=== PATIENT | male | born 1970 | race African-American/Black ===

== ENCOUNTER 2020-06-19 10:10 | Inpatient (IN) | payer OTHER ==
[2020-06-19 10:49] VITALS: BMI 22.6
[2020-06-19] MEDS ORDERED: diazePAM 5 MG TABLET PO PRN (12:46)
[2020-06-19] MEDS ORDERED: IBUPROFEN 400 MG TABLET (FP) PO PRN (12:46)
[2020-06-19] MEDS ORDERED: MAGNESIUM CITRATE 300 ML BOTTLE PO PRN (12:46)
[2020-06-19] MEDS ORDERED: MENTHOL/PHENOL 1 EACH UD MM PRN (12:46)
[2020-06-19] MEDS ORDERED: METHOCARBAMOL 500 MG TABLET PO PRN (12:46)
[2020-06-19] MEDS ORDERED: BISMUTH SUBSALICYLATE 524 MG/30 ML UD PO PRN (12:46)
[2020-06-19] MEDS ORDERED: MAG HYDROX/AL HYDROX/SIMETH 30 ML UNIT-DOSE CUP PO PRN (12:46)
[2020-06-19] MEDS ORDERED: ACETAMINOPHEN 325 MG TABLET (FP) PO PRN ×2 (12:46)
[2020-06-19] MEDS ORDERED: ONDANSETRON *ODT* 4 MG TABLET SL PRN (12:46)
[2020-06-19] MEDS ORDERED: MAGNESIUM HYDROX 2400MG/30ML ORAL SUSPENSION 30 ML CUP PO PRN (12:46)
[2020-06-19] MEDS ORDERED: NICOTINE POLACRILEX 2 MG GUM BUC PRN (12:46)
[2020-06-19] MEDS ORDERED: ALBUTEROL SO4 HFA INHALER IH PRN (12:48)
[2020-06-19] MEDS: diazePAM 5 MG TABLET PO SCH ×3 (17:11→23:06)
[2020-06-19] MEDS: hydrOXYzine PAMOATE 25 MG CAPSULE (FP) PO SCH ×3 (17:11→23:05)
[2020-06-19 17:17] LABS: CALCIUM 9.2 mg/dL (8.5-10.1)
[2020-06-19 17:18] LABS: ALBUMIN 3.7 g/dl (3.4-5.0); BLOOD UREA NITROGEN 14.5 mg/dL (7-18)
[2020-06-19 17:23] LABS: BILIRUBIN,TOTAL 0.4 mg/dL (0.2-1); TOT PROT 7.2 g/dl (6.4-8.2)
[2020-06-19 17:28] LABS: HEMATOCRIT 36.8 % (35.4-49); HEMOGLOBIN 12.4 GM/dL (11.7-16.9); MCH 30.2 pg (25.7-33.7); MCHC 33.8 g/dl (32.0-35.9); MEAN CELL VOLUME 89.4 fl (80-96); MEAN PLT VOLUME 7.4 fl (7.5-11.1); PLATELET COUNT 372 K/MM3 (134-434); RBC 4.12 M/mm3 (4.00-5.60); RDW 15.9 % (11.9-15.9); WHITE BLOOD COUNT 5.1 K/mm3 (4.0-10.0)
[2020-06-19] MEDS: PRENATAL VITAMINS W/ FOLIC ACID TABLET (FP) PO SCH (18:26)
[2020-06-19] MEDS: MELATONIN 5 MG TABLETS PO SCH (23:05)
[2020-06-19] MEDS: THIAMINE HCL 100 MG TABLET (FP) PO SCH (23:06)
[2020-06-20] MEDS: hydrOXYzine PAMOATE 25 MG CAPSULE (FP) PO SCH ×5 (06:23→22:31)
[2020-06-20] MEDS: diazePAM 5 MG TABLET PO SCH ×4 (06:23→22:31)
[2020-06-20] MEDS: PRENATAL VITAMINS W/ FOLIC ACID TABLET (FP) PO SCH (11:02)
[2020-06-20] MEDS: NICOTINE 21 MG/24 HOURS TOPICAL PATCH TD SCH (11:02)
[2020-06-20] MEDS: MELATONIN 5 MG TABLETS PO SCH (22:31)
[2020-06-20] MEDS: THIAMINE HCL 100 MG TABLET (FP) PO SCH (22:31)
[2020-06-21] MEDS: hydrOXYzine PAMOATE 25 MG CAPSULE (FP) PO SCH ×5 (06:50→22:04)
[2020-06-21] MEDS: diazePAM 5 MG TABLET PO SCH ×3 (06:50→22:04)
[2020-06-21] MEDS: PRENATAL VITAMINS W/ FOLIC ACID TABLET (FP) PO SCH (10:11)
[2020-06-21] MEDS: NICOTINE 21 MG/24 HOURS TOPICAL PATCH TD SCH (10:12)
[2020-06-21] MEDS: MELATONIN 5 MG TABLETS PO SCH (22:04)
[2020-06-21] MEDS: THIAMINE HCL 100 MG TABLET (FP) PO SCH (22:04)
[2020-06-22] MEDS ORDERED: diazePAM 5 MG TABLET PO SCH (06:00)
[2020-06-22] MEDS: hydrOXYzine PAMOATE 25 MG CAPSULE (FP) PO SCH (06:11)
[2020-06-22 11:12] VITALS: BP 126/78; PULSE 89; TEMP 98.4
[2020-06-23] MEDS ORDERED: diazePAM 5 MG TABLET PO ONE (06:00)
[2020-06-23 06:06] LABS: SARS-CoV-2 NAA Not Detected (Not Detected)
== END 2020-06-22 12:00 | disposition home or self-care (01) | DRG 774 ==
LOC: YASAS 10:10 → Y6N 15:49
PROVIDERS: ADMIT Allergy & Immunology; ATTEND Allergy & Immunology
PROC: HZ2ZZZZ Detoxification Services for Substance Abuse Treatment (ICD-10-PCS; principal; 2020-06-19)
DX: F10.230 Alcohol dependence with withdrawal, uncomplicated (principal); F14.20 Cocaine dependence, uncomplicated; F17.210 Nicotine dependence, cigarettes, uncomplicated; F19.24 Other psychoactive substance dependence with psychoactive substance-induced mood disorder; J45.20 Mild intermittent asthma, uncomplicated; Z87.828 Personal history of other (healed) physical injury and trauma; Z59.0 Homelessness; Z91.013 Allergy to seafood
CPT/HCPCS: 36415; 80053; 82962; 85027; 86780; C9803; Q0162; U0003; U0005

== ENCOUNTER 2020-09-20 10:24 | Inpatient (IN) | payer OTHER ==
[2020-09-20 14:03] VITALS: BMI 20.9
[2020-09-20] MEDS ORDERED: ONDANSETRON *ODT* 4 MG TABLET SL PRN (14:20)
[2020-09-20] MEDS ORDERED: NICOTINE 10 MG CARTRIDGE (INHALER) IH PRN (14:20)
[2020-09-20] MEDS ORDERED: MAG HYDROX/AL HYDROX/SIMETH 30 ML UNIT-DOSE CUP PO PRN (14:20)
[2020-09-20] MEDS ORDERED: diazePAM 5 MG TABLET PO PRN (14:20)
[2020-09-20] MEDS ORDERED: ACETAMINOPHEN 325 MG TABLET (FP) PO PRN ×2 (14:20)
[2020-09-20] MEDS ORDERED: METHOCARBAMOL 500 MG TABLET PO PRN (14:20)
[2020-09-20] MEDS ORDERED: MAGNESIUM CITRATE 300 ML BOTTLE PO PRN (14:20)
[2020-09-20] MEDS ORDERED: NICOTINE POLACRILEX 2 MG GUM BUC PRN (14:20)
[2020-09-20] MEDS ORDERED: IBUPROFEN 400 MG TABLET (FP) PO PRN (14:20)
[2020-09-20] MEDS ORDERED: MAGNESIUM HYDROX 2400MG/30ML ORAL SUSPENSION 30 ML CUP PO PRN (14:20)
[2020-09-20] MEDS ORDERED: BISMUTH SUBSALICYLATE 524 MG/30 ML PO PRN (14:20)
[2020-09-20] MEDS ORDERED: MENTHOL/PHENOL 1 EACH UD MM PRN (14:20)
[2020-09-20] MEDS ORDERED: ALBUTEROL SO4 HFA INHALER IH PRN (14:22)
[2020-09-20] MEDS ORDERED: diazePAM 5 MG TABLET ONE (18:32)
[2020-09-20] MEDS: diazePAM 5 MG TABLET PO SCH ×2 (18:34→22:53)
[2020-09-20] MEDS: hydrOXYzine PAMOATE 25 MG CAPSULE (FP) PO SCH ×2 (18:34→22:52)
[2020-09-20] MEDS: MELATONIN 5 MG TABLETS PO SCH (22:52)
[2020-09-20] MEDS: THIAMINE HCL 100 MG TABLET (FP) PO SCH (22:52)
[2020-09-21] MEDS: diazePAM 5 MG TABLET PO SCH ×4 (06:08→22:41)
[2020-09-21] MEDS: hydrOXYzine PAMOATE 25 MG CAPSULE (FP) PO SCH ×3 (06:08→13:47)
[2020-09-21 10:20] LABS: HEMATOCRIT 40.6 % (35.4-49); HEMOGLOBIN 13.5 GM/dL (11.7-16.9); MCH 30.9 pg (25.7-33.7); MCHC 33.2 g/dl (32.0-35.9); MEAN CELL VOLUME 92.9 fl (80-96); MEAN PLT VOLUME 7.4 fl (7.5-11.1); PLATELET COUNT 343 10^3/uL (134-434); RBC 4.38 M/mm3 (4.00-5.60); RDW 15.4 % (11.9-15.9)
[2020-09-21] MEDS: PRENATAL VITAMINS W/ FOLIC ACID TABLET (FP) PO SCH (10:27)
[2020-09-21 10:30] LABS: ALBUMIN 3.4 g/dl (3.4-5.0)
[2020-09-21 10:31] LABS: BLOOD UREA NITROGEN 18.1 mg/dL (7-18)
[2020-09-21 10:34] LABS: BILIRUBIN,TOTAL 0.3 mg/dL (0.2-1); CREATININE 1.1 mg/dL (0.55-1.3); TOT PROT 6.6 g/dl (6.4-8.2)
[2020-09-21 11:24] LABS: HIV INTERPRETATION NEGATIVE (NEGATIVE)
[2020-09-21] MEDS ORDERED: hydrOXYzine PAMOATE 25 MG CAPSULE (FP) PO PRN (14:16)
[2020-09-21] MEDS: THIAMINE HCL 100 MG TABLET (FP) PO SCH (22:41)
[2020-09-21] MEDS: MELATONIN 5 MG TABLETS PO SCH (22:41)
[2020-09-22] MEDS ORDERED: INSULIN SLIDING SCALE (NOVOLOG) 1 VIAL SQ ONE (04:06)
[2020-09-22] MEDS: diazePAM 5 MG TABLET PO SCH ×3 (06:33→22:23)
[2020-09-22] MEDS: PRENATAL VITAMINS W/ FOLIC ACID TABLET (FP) PO SCH (10:59)
[2020-09-22] MEDS: MELATONIN 5 MG TABLETS PO SCH (22:23)
[2020-09-22] MEDS: THIAMINE HCL 100 MG TABLET (FP) PO SCH (22:23)
[2020-09-23] MEDS: diazePAM 5 MG TABLET PO SCH ×2 (05:41→17:50)
[2020-09-23] MEDS: PRENATAL VITAMINS W/ FOLIC ACID TABLET (FP) PO SCH (10:30)
[2020-09-23] MEDS: MELATONIN 5 MG TABLETS PO SCH (22:31)
[2020-09-23] MEDS: THIAMINE HCL 100 MG TABLET (FP) PO SCH (22:31)
[2020-09-24] MEDS ORDERED: diazePAM 5 MG TABLET PO ONE (06:00)
[2020-09-24] MEDS: PRENATAL VITAMINS W/ FOLIC ACID TABLET (FP) PO SCH (10:19)
[2020-09-24 17:44] VITALS: BP 133/84; PULSE 81; TEMP 97.5
== END 2020-09-24 19:11 | disposition other institution (70) | DRG 774 ==
LOC: YASAS 10:24 → UNDOADMIN 19:51 → Y3N 19:51
PROVIDERS: ADMIT Allergy & Immunology; ATTEND Allergy & Immunology
PROC: HZ2ZZZZ Detoxification Services for Substance Abuse Treatment (ICD-10-PCS; principal; 2020-09-20)
DX: F10.230 Alcohol dependence with withdrawal, uncomplicated (principal); F14.20 Cocaine dependence, uncomplicated; F17.210 Nicotine dependence, cigarettes, uncomplicated; J45.909 Unspecified asthma, uncomplicated; M54.5 Low back pain; G89.29 Other chronic pain
CPT/HCPCS: 36415; 80053; 85027; 86780; 87389; C9803; U0003; U0005

== ENCOUNTER 2020-09-24 18:12 | Inpatient (IN) | payer OTHER ==
[2020-09-24] MEDS ORDERED: MAGNESIUM HYDROX 2400MG/30ML ORAL SUSPENSION 30 ML CUP PO PRN (18:24)
[2020-09-24] MEDS ORDERED: MAGNESIUM CITRATE 300 ML BOTTLE PO PRN (18:24)
[2020-09-24] MEDS ORDERED: ACETAMINOPHEN 325 MG TABLET (FP) PO PRN (18:24)
[2020-09-24] MEDS ORDERED: guaiFENesin 200 MG/10 ML 10 ML UNIT-DOSE CUPS PO PRN (18:24)
[2020-09-24] MEDS ORDERED: MAG HYDROX/AL HYDROX/SIMETH 30 ML UNIT-DOSE CUP PO PRN (18:24)
[2020-09-24] MEDS ORDERED: P-EPHED 60MG/TRIPROLIDI 2.5MG TABLET PO PRN (18:24)
[2020-09-24] MEDS ORDERED: LOPERAMIDE HCL 2 MG CAPSULE PO PRN (18:24)
[2020-09-24] MEDS ORDERED: MENTHOL/PHENOL 1 EACH UD MM PRN (18:24)
[2020-09-24] MEDS ORDERED: ALBUTEROL SO4 HFA INHALER IH PRN (18:26)
[2020-09-24] MEDS: THIAMINE HCL 100 MG TABLET (FP) PO SCH (21:52)
[2020-09-24] MEDS: MELATONIN 5 MG TABLETS PO SCH (21:52)
[2020-09-25] MEDS: PRENATAL VITAMINS W/ FOLIC ACID TABLET (FP) PO SCH (09:42)
[2020-09-25] MEDS: NICOTINE 7 MG/24 HOURS TOPICAL PATCH TD SCH (09:42)
[2020-09-25] MEDS: NICOTINE 10 MG CARTRIDGE (INHALER) IH PRN (09:42)
[2020-09-25] MEDS: hydrOXYzine PAMOATE 25 MG CAPSULE (FP) PO PRN (21:20)
[2020-09-25] MEDS: MELATONIN 5 MG TABLETS PO SCH (21:20)
[2020-09-25] MEDS: THIAMINE HCL 100 MG TABLET (FP) PO SCH (21:20)
[2020-09-26] MEDS: NICOTINE 10 MG CARTRIDGE (INHALER) IH PRN (07:55)
[2020-09-26] MEDS: PRENATAL VITAMINS W/ FOLIC ACID TABLET (FP) PO SCH (10:00)
[2020-09-26] MEDS: NICOTINE 7 MG/24 HOURS TOPICAL PATCH TD SCH (10:00)
[2020-09-26] MEDS: IBUPROFEN 400 MG TABLET (FP) PO PRN (10:01)
[2020-09-26] MEDS: MELATONIN 5 MG TABLETS PO SCH (21:16)
[2020-09-26] MEDS: THIAMINE HCL 100 MG TABLET (FP) PO SCH (21:17)
[2020-09-27] MEDS: PRENATAL VITAMINS W/ FOLIC ACID TABLET (FP) PO SCH (09:38)
[2020-09-27] MEDS: NICOTINE 10 MG CARTRIDGE (INHALER) IH PRN (09:39)
[2020-09-27] MEDS: NICOTINE 7 MG/24 HOURS TOPICAL PATCH TD SCH (09:39)
[2020-09-27] MEDS: IBUPROFEN 400 MG TABLET (FP) PO PRN (11:30)
[2020-09-27] MEDS: THIAMINE HCL 100 MG TABLET (FP) PO SCH (21:17)
[2020-09-27] MEDS: MELATONIN 5 MG TABLETS PO SCH (21:17)
[2020-09-28] MEDS: NICOTINE 10 MG CARTRIDGE (INHALER) IH PRN (09:52)
[2020-09-28] MEDS: NICOTINE 7 MG/24 HOURS TOPICAL PATCH TD SCH (09:52)
[2020-09-28] MEDS: PRENATAL VITAMINS W/ FOLIC ACID TABLET (FP) PO SCH (09:52)
[2020-09-28] MEDS: IBUPROFEN 400 MG TABLET (FP) PO PRN (15:54)
[2020-09-28] MEDS: hydrOXYzine PAMOATE 25 MG CAPSULE (FP) PO PRN (15:54)
[2020-09-28] MEDS: THIAMINE HCL 100 MG TABLET (FP) PO SCH (23:10)
[2020-09-28] MEDS: MELATONIN 5 MG TABLETS PO SCH (23:10)
[2020-09-29] MEDS: IBUPROFEN 400 MG TABLET (FP) PO PRN ×2 (06:28→21:35)
[2020-09-29] MEDS: NICOTINE 10 MG CARTRIDGE (INHALER) IH PRN (09:55)
[2020-09-29] MEDS: PRENATAL VITAMINS W/ FOLIC ACID TABLET (FP) PO SCH (09:55)
[2020-09-29] MEDS: NICOTINE 7 MG/24 HOURS TOPICAL PATCH TD SCH (09:55)
[2020-09-29] MEDS: METHOCARBAMOL 500 MG TABLET PO PRN ×2 (11:58→21:35)
[2020-09-29] MEDS: LIDOCAINE 5% TOPICAL PATCH TP SCH (11:58)
[2020-09-29] MEDS ORDERED: COLLOIDAL OATMEAL 1 BAR EACH TP PRN (16:05)
[2020-09-29] MEDS: LIDOCAINE PATCH REMOVAL MC SCH (21:34)
[2020-09-29] MEDS: MELATONIN 5 MG TABLETS PO SCH (21:34)
[2020-09-29] MEDS: THIAMINE HCL 100 MG TABLET (FP) PO SCH (21:34)
[2020-09-30] MEDS: IBUPROFEN 400 MG TABLET (FP) PO PRN ×2 (07:00→21:31)
[2020-09-30] MEDS: NICOTINE 10 MG CARTRIDGE (INHALER) IH PRN (10:01)
[2020-09-30] MEDS: PRENATAL VITAMINS W/ FOLIC ACID TABLET (FP) PO SCH (10:01)
[2020-09-30] MEDS: METHOCARBAMOL 500 MG TABLET PO PRN (10:02)
[2020-09-30] MEDS: LIDOCAINE 5% TOPICAL PATCH TP SCH (10:02)
[2020-09-30] MEDS: NICOTINE 7 MG/24 HOURS TOPICAL PATCH TD SCH (10:03)
[2020-09-30] MEDS: THIAMINE HCL 100 MG TABLET (FP) PO SCH (21:30)
[2020-09-30] MEDS: LIDOCAINE PATCH REMOVAL MC SCH (21:30)
[2020-09-30] MEDS: MELATONIN 5 MG TABLETS PO SCH (21:30)
[2020-10-01] MEDS: PRENATAL VITAMINS W/ FOLIC ACID TABLET (FP) PO SCH (10:04)
[2020-10-01] MEDS: NICOTINE 10 MG CARTRIDGE (INHALER) IH PRN (10:04)
[2020-10-01] MEDS: NICOTINE 7 MG/24 HOURS TOPICAL PATCH TD SCH (10:04)
[2020-10-01] MEDS: IBUPROFEN 400 MG TABLET (FP) PO PRN (10:05)
[2020-10-01] MEDS: LIDOCAINE 5% TOPICAL PATCH TP SCH (10:05)
[2020-10-01] MEDS: METHOCARBAMOL 500 MG TABLET PO PRN (10:05)
[2020-10-01] MEDS: MELATONIN 5 MG TABLETS PO SCH (21:23)
[2020-10-01] MEDS: THIAMINE HCL 100 MG TABLET (FP) PO SCH (21:23)
[2020-10-01] MEDS: LIDOCAINE PATCH REMOVAL MC SCH (21:24)
[2020-10-02] MEDS: NICOTINE 7 MG/24 HOURS TOPICAL PATCH TD SCH (09:56)
[2020-10-02] MEDS: PRENATAL VITAMINS W/ FOLIC ACID TABLET (FP) PO SCH (09:56)
[2020-10-02] MEDS: LIDOCAINE 5% TOPICAL PATCH TP SCH (09:56)
[2020-10-02] MEDS: IBUPROFEN 400 MG TABLET (FP) PO PRN ×2 (09:57→21:34)
[2020-10-02] MEDS: LIDOCAINE PATCH REMOVAL MC SCH (21:33)
[2020-10-02] MEDS: MELATONIN 5 MG TABLETS PO SCH (21:33)
[2020-10-02] MEDS: METHOCARBAMOL 500 MG TABLET PO PRN (21:34)
[2020-10-02] MEDS: THIAMINE HCL 100 MG TABLET (FP) PO SCH (21:34)
[2020-10-03] MEDS: LIDOCAINE 5% TOPICAL PATCH TP SCH (10:26)
[2020-10-03] MEDS: PRENATAL VITAMINS W/ FOLIC ACID TABLET (FP) PO SCH (10:27)
[2020-10-03] MEDS: METHOCARBAMOL 500 MG TABLET PO PRN ×2 (10:27→21:24)
[2020-10-03] MEDS: NICOTINE 10 MG CARTRIDGE (INHALER) IH PRN (10:27)
[2020-10-03] MEDS: NICOTINE 7 MG/24 HOURS TOPICAL PATCH TD SCH (10:27)
[2020-10-03] MEDS: IBUPROFEN 400 MG TABLET (FP) PO PRN (21:24)
[2020-10-03] MEDS: LIDOCAINE PATCH REMOVAL MC SCH (21:25)
[2020-10-03] MEDS: MELATONIN 5 MG TABLETS PO SCH (21:25)
[2020-10-03] MEDS: THIAMINE HCL 100 MG TABLET (FP) PO SCH (21:26)
[2020-10-04] MEDS: LIDOCAINE 5% TOPICAL PATCH TP SCH (10:17)
[2020-10-04] MEDS: PRENATAL VITAMINS W/ FOLIC ACID TABLET (FP) PO SCH (10:17)
[2020-10-04] MEDS: METHOCARBAMOL 500 MG TABLET PO PRN ×2 (10:17→21:42)
[2020-10-04] MEDS: NICOTINE 7 MG/24 HOURS TOPICAL PATCH TD SCH (10:17)
[2020-10-04] MEDS: IBUPROFEN 400 MG TABLET (FP) PO PRN ×2 (10:18→21:42)
[2020-10-04] MEDS: LIDOCAINE PATCH REMOVAL MC SCH (21:44)
[2020-10-04] MEDS: MELATONIN 5 MG TABLETS PO SCH (21:44)
[2020-10-04] MEDS: THIAMINE HCL 100 MG TABLET (FP) PO SCH (21:44)
[2020-10-05] MEDS: NICOTINE 7 MG/24 HOURS TOPICAL PATCH TD SCH (10:24)
[2020-10-05] MEDS: LIDOCAINE 5% TOPICAL PATCH TP SCH (10:24)
[2020-10-05] MEDS: PRENATAL VITAMINS W/ FOLIC ACID TABLET (FP) PO SCH (10:24)
[2020-10-05] MEDS: IBUPROFEN 400 MG TABLET (FP) PO PRN ×2 (10:26→21:42)
[2020-10-05] MEDS: METHOCARBAMOL 500 MG TABLET PO PRN ×2 (10:26→21:42)
[2020-10-05] MEDS: THIAMINE HCL 100 MG TABLET (FP) PO SCH (21:40)
[2020-10-05] MEDS: MELATONIN 5 MG TABLETS PO SCH (21:41)
[2020-10-05] MEDS: LIDOCAINE PATCH REMOVAL MC SCH (21:41)
[2020-10-06 06:39] VITALS: BP 100/65; PULSE 65; TEMP 97.1
[2020-10-06] MEDS: LIDOCAINE 5% TOPICAL PATCH TP SCH (10:11)
[2020-10-06] MEDS: PRENATAL VITAMINS W/ FOLIC ACID TABLET (FP) PO SCH (10:11)
[2020-10-06] MEDS: NICOTINE 7 MG/24 HOURS TOPICAL PATCH TD SCH (10:11)
== END 2020-10-06 11:00 | disposition home or self-care (01) | DRG 772 ==
LOC: YASAS 18:12 → UNDOADMIN 18:17 → Y5N 18:17
PROVIDERS: ADMIT Allergy & Immunology; ATTEND Allergy & Immunology
PROC: HZ42ZZZ Group Counseling for Substance Abuse Treatment, Cognitive-Behavioral (ICD-10-PCS; principal; 2020-09-24)
DX: F10.20 Alcohol dependence, uncomplicated (principal); F14.20 Cocaine dependence, uncomplicated; J45.909 Unspecified asthma, uncomplicated; M54.5 Low back pain; G89.29 Other chronic pain

== ENCOUNTER 2020-11-12 12:01 | Inpatient (IN) | payer OTHER ==
[2020-11-12 12:37] VITALS: BMI 25.0
[2020-11-12] MEDS ORDERED: ONDANSETRON *ODT* 4 MG TABLET SL PRN (13:14)
[2020-11-12] MEDS ORDERED: MAGNESIUM CITRATE 300 ML BOTTLE PO PRN (13:14)
[2020-11-12] MEDS ORDERED: IBUPROFEN 400 MG TABLET (FP) PO PRN (13:14)
[2020-11-12] MEDS ORDERED: MENTHOL/PHENOL 1 EACH UD MM PRN (13:14)
[2020-11-12] MEDS ORDERED: BISMUTH SUBSALICYLATE 524 MG/30 ML PO PRN (13:14)
[2020-11-12] MEDS ORDERED: MAGNESIUM HYDROX 2400MG/30ML ORAL SUSPENSION 30 ML CUP PO PRN (13:14)
[2020-11-12] MEDS ORDERED: diazePAM 5 MG TABLET PO PRN (13:14)
[2020-11-12] MEDS ORDERED: NICOTINE 10 MG CARTRIDGE (INHALER) IH PRN (13:14)
[2020-11-12] MEDS ORDERED: METHOCARBAMOL 500 MG TABLET PO PRN (13:14)
[2020-11-12] MEDS ORDERED: MAG HYDROX/AL HYDROX/SIMETH 30 ML UNIT-DOSE CUP PO PRN (13:14)
[2020-11-12] MEDS ORDERED: ACETAMINOPHEN 325 MG TABLET (FP) PO PRN ×2 (13:14)
[2020-11-12] MEDS: PRENATAL VITAMINS W/ FOLIC ACID TABLET (FP) PO SCH (14:21)
[2020-11-12] MEDS: diazePAM 5 MG TABLET PO SCH ×3 (14:21→22:30)
[2020-11-12] MEDS: hydrOXYzine PAMOATE 25 MG CAPSULE (FP) PO SCH ×3 (14:22→22:30)
[2020-11-12 18:44] LABS: CALCIUM 9.6 mg/dL (8.5-10.1)
[2020-11-12 18:46] LABS: BLOOD UREA NITROGEN 12.9 mg/dL (7-18); HEMATOCRIT 39.1 % (35.4-49); HEMOGLOBIN 13.3 GM/dL (11.7-16.9); MCH 30.6 pg (25.7-33.7); MEAN CELL VOLUME 89.9 fl (80-96); MEAN PLT VOLUME 7.1 fl (7.5-11.1); PLATELET COUNT 410 10^3/uL (134-434); RBC 4.35 M/mm3 (4.00-5.60); RDW 14.8 % (11.9-15.9); WHITE BLOOD COUNT 6.9 K/mm3 (4.0-10.0)
[2020-11-12 18:47] LABS: ALBUMIN 3.9 g/dl (3.4-5.0)
[2020-11-12 18:50] LABS: BILIRUBIN,TOTAL 0.5 mg/dL (0.2-1); TOT PROT 7.8 g/dl (6.4-8.2)
[2020-11-12 19:36] LABS: HIV INTERPRETATION NEGATIVE (NEGATIVE)
[2020-11-12] MEDS: MELATONIN 5 MG TABLETS PO SCH (22:30)
[2020-11-12] MEDS: THIAMINE HCL 100 MG TABLET (FP) PO SCH (22:30)
[2020-11-13] MEDS: diazePAM 5 MG TABLET PO SCH ×4 (06:04→23:09)
[2020-11-13] MEDS: hydrOXYzine PAMOATE 25 MG CAPSULE (FP) PO SCH ×5 (06:04→23:09)
[2020-11-13] MEDS ORDERED: ALBUTEROL SO4 HFA INHALER IH PRN (07:48)
[2020-11-13] MEDS: PRENATAL VITAMINS W/ FOLIC ACID TABLET (FP) PO SCH (10:15)
[2020-11-13] MEDS: MELATONIN 5 MG TABLETS PO SCH (23:08)
[2020-11-13] MEDS: THIAMINE HCL 100 MG TABLET (FP) PO SCH (23:09)
[2020-11-14] MEDS: hydrOXYzine PAMOATE 25 MG CAPSULE (FP) PO SCH ×5 (06:01→22:27)
[2020-11-14] MEDS: diazePAM 5 MG TABLET PO SCH ×3 (06:01→22:27)
[2020-11-14] MEDS: PRENATAL VITAMINS W/ FOLIC ACID TABLET (FP) PO SCH (10:18)
[2020-11-14] MEDS: MELATONIN 5 MG TABLETS PO SCH (22:27)
[2020-11-14] MEDS: THIAMINE HCL 100 MG TABLET (FP) PO SCH (22:27)
[2020-11-15] MEDS: diazePAM 5 MG TABLET PO SCH ×2 (05:58→17:56)
[2020-11-15] MEDS: hydrOXYzine PAMOATE 25 MG CAPSULE (FP) PO SCH ×5 (05:59→22:19)
[2020-11-15] MEDS: PRENATAL VITAMINS W/ FOLIC ACID TABLET (FP) PO SCH (10:16)
[2020-11-15 21:54] VITALS: BP 146/91; PULSE 83; TEMP 97.3
[2020-11-15] MEDS: THIAMINE HCL 100 MG TABLET (FP) PO SCH (22:19)
[2020-11-15] MEDS: MELATONIN 5 MG TABLETS PO SCH (22:19)
[2020-11-16] MEDS ORDERED: diazePAM 5 MG TABLET PO ONE (06:00)
== END 2020-11-15 23:01 | disposition left against medical advice (07) | DRG 770 ==
LOC: YASAS 12:01 → Y3N 13:26
PROVIDERS: ADMIT Allergy & Immunology; ATTEND Allergy & Immunology
PROC: HZ2ZZZZ Detoxification Services for Substance Abuse Treatment (ICD-10-PCS; principal; 2020-11-12)
DX: F10.230 Alcohol dependence with withdrawal, uncomplicated (principal); F14.20 Cocaine dependence, uncomplicated; F17.210 Nicotine dependence, cigarettes, uncomplicated; F19.24 Other psychoactive substance dependence with psychoactive substance-induced mood disorder; J45.909 Unspecified asthma, uncomplicated; M54.50 Low back pain, unspecified; G89.29 Other chronic pain; Z86.718 Personal history of other venous thrombosis and embolism; Z91.013 Allergy to seafood
CPT/HCPCS: 36415; 80053; 85027; 86780; 87389; C9803; U0003; U0005

== ENCOUNTER 2020-12-28 10:39 | Inpatient (IN) | payer OTHER ==
[2020-12-28 11:21] VITALS: BMI 25.2
[2020-12-28] MEDS ORDERED: ONDANSETRON *ODT* 4 MG TABLET SL PRN (11:35)
[2020-12-28] MEDS ORDERED: MAG HYDROX/AL HYDROX/SIMETH 30 ML UNIT-DOSE CUP PO PRN (11:35)
[2020-12-28] MEDS ORDERED: MAGNESIUM CITRATE 300 ML BOTTLE PO PRN (11:35)
[2020-12-28] MEDS ORDERED: ACETAMINOPHEN 325 MG TABLET (FP) PO PRN ×2 (11:35)
[2020-12-28] MEDS ORDERED: IBUPROFEN 400 MG TABLET (FP) PO PRN (11:35)
[2020-12-28] MEDS ORDERED: NICOTINE 10 MG CARTRIDGE (INHALER) IH PRN (11:35)
[2020-12-28] MEDS ORDERED: MAGNESIUM HYDROX 2400MG/30ML ORAL SUSPENSION 30 ML CUP PO PRN (11:35)
[2020-12-28] MEDS ORDERED: MENTHOL/PHENOL 1 EACH UD MM PRN (11:35)
[2020-12-28] MEDS ORDERED: BISMUTH SUBSALICYLATE 524 MG/30 ML PO PRN (11:35)
[2020-12-28] MEDS ORDERED: METHOCARBAMOL 500 MG TABLET PO PRN (11:35)
[2020-12-28] MEDS ORDERED: guaiFENesin 200 MG/10 ML 10 ML UNIT-DOSE CUPS PO PRN (13:04)
[2020-12-28] MEDS: diazePAM 5 MG TABLET PO SCH ×3 (13:45→22:39)
[2020-12-28] MEDS: PRENATAL VITAMINS W/ FOLIC ACID TABLET (FP) PO SCH (13:46)
[2020-12-28] MEDS: NICOTINE 14 MG/24 HOURS TOPICAL PATCH TD SCH (13:46)
[2020-12-28] MEDS: hydrOXYzine PAMOATE 25 MG CAPSULE (FP) PO SCH ×3 (15:14→22:38)
[2020-12-28 17:20] LABS: HEMATOCRIT 39.7 % (35.4-49); HEMOGLOBIN 13.6 GM/dL (11.7-16.9); MCH 30.5 pg (25.7-33.7); MCHC 34.3 g/dl (32.0-35.9); MEAN CELL VOLUME 89.1 fl (80-96); MEAN PLT VOLUME 7.8 fl (7.5-11.1); PLATELET COUNT 350 10^3/uL (134-434); RBC 4.45 M/mm3 (4.00-5.60); RDW 15.1 % (11.9-15.9); WHITE BLOOD COUNT 8.9 K/mm3 (4.0-10.0)
[2020-12-28 17:22] LABS: CALCIUM 9.1 mg/dL (8.5-10.1)
[2020-12-28 17:23] LABS: BLOOD UREA NITROGEN 16.1 mg/dL (7-18)
[2020-12-28 17:27] LABS: BILIRUBIN,TOTAL 0.5 mg/dL (0.2-1); TOT PROT 7.8 g/dl (6.4-8.2)
[2020-12-28] MEDS ORDERED: MELATONIN 5 MG TABLETS PO SCH (22:00)
[2020-12-28] MEDS: THIAMINE HCL 100 MG TABLET (FP) PO SCH (22:38)
[2020-12-29] MEDS: hydrOXYzine PAMOATE 25 MG CAPSULE (FP) PO SCH (06:43)
[2020-12-29] MEDS: diazePAM 5 MG TABLET PO SCH ×4 (06:43→22:49)
[2020-12-29] MEDS: PRENATAL VITAMINS W/ FOLIC ACID TABLET (FP) PO SCH (10:06)
[2020-12-29] MEDS: NICOTINE 14 MG/24 HOURS TOPICAL PATCH TD SCH (10:06)
[2020-12-29] MEDS: hydrOXYzine PAMOATE 25 MG CAPSULE (FP) PO PRN (17:38)
[2020-12-29] MEDS ORDERED: HYDROCORTISONE 1% TOPICAL CREAM 30 GM TUBE TP PRN (20:04)
[2020-12-29] MEDS: THIAMINE HCL 100 MG TABLET (FP) PO SCH (22:49)
[2020-12-29] MEDS: MELATONIN 5 MG TABLETS PO SCH (22:49)
[2020-12-30] MEDS: diazePAM 5 MG TABLET PO SCH ×3 (05:29→21:21)
[2020-12-30] MEDS: hydrOXYzine PAMOATE 25 MG CAPSULE (FP) PO PRN (05:32)
[2020-12-30] MEDS: PRENATAL VITAMINS W/ FOLIC ACID TABLET (FP) PO SCH (10:03)
[2020-12-30] MEDS: NICOTINE 14 MG/24 HOURS TOPICAL PATCH TD SCH (10:03)
[2020-12-30] MEDS: diazePAM 5 MG TABLET PO PRN (10:03)
[2020-12-30] MEDS: THIAMINE HCL 100 MG TABLET (FP) PO SCH (21:20)
[2020-12-30] MEDS: MELATONIN 5 MG TABLETS PO SCH (21:20)
[2020-12-31] MEDS ORDERED: diazePAM 5 MG TABLET PO SCH (06:00)
[2020-12-31 06:56] VITALS: TEMP 97.3
[2020-12-31 09:00] VITALS: BP 132/83; PULSE 92
[2020-12-31] MEDS: diazePAM 5 MG TABLET PO PRN (10:38)
[2020-12-31] MEDS: NICOTINE 14 MG/24 HOURS TOPICAL PATCH TD SCH (10:38)
[2020-12-31] MEDS: PRENATAL VITAMINS W/ FOLIC ACID TABLET (FP) PO SCH (10:38)
[2021-01-01] MEDS ORDERED: diazePAM 5 MG TABLET PO ONE (06:00)
== END 2020-12-31 11:50 | disposition left against medical advice (07) | DRG 770 ==
LOC: YASAS 10:39 → Y3N 11:41
PROVIDERS: ADMIT Allergy & Immunology; ATTEND Allergy & Immunology
PROC: HZ2ZZZZ Detoxification Services for Substance Abuse Treatment (ICD-10-PCS; principal; 2020-12-28)
DX: F10.230 Alcohol dependence with withdrawal, uncomplicated (principal); F14.20 Cocaine dependence, uncomplicated; F17.210 Nicotine dependence, cigarettes, uncomplicated; F19.282 Other psychoactive substance dependence with psychoactive substance-induced sleep disorder; F19.24 Other psychoactive substance dependence with psychoactive substance-induced mood disorder; J45.909 Unspecified asthma, uncomplicated; M54.50 Low back pain, unspecified; G89.29 Other chronic pain; Z18.89 Other specified retained foreign body fragments; Z59.01 Sheltered homelessness; Z56.0 Unemployment, unspecified; Z91.013 Allergy to seafood
CPT/HCPCS: 36415; 80053; 85027; 86780; C9803; U0003; U0005

== ENCOUNTER 2021-01-01 09:09 | Inpatient (IN) | payer OTHER ==
[2021-01-01 09:43] VITALS: BMI 25.2
[2021-01-01] MEDS ORDERED: LOPERAMIDE HCL 2 MG CAPSULE PO PRN (09:46)
[2021-01-01] MEDS ORDERED: P-EPHED 60MG/TRIPROLIDI 2.5MG TABLET PO PRN (09:46)
[2021-01-01] MEDS ORDERED: MAGNESIUM HYDROX 2400MG/30ML ORAL SUSPENSION 30 ML CUP PO PRN (09:46)
[2021-01-01] MEDS ORDERED: guaiFENesin 200 MG/10 ML 10 ML UNIT-DOSE CUPS PO PRN (09:46)
[2021-01-01] MEDS ORDERED: MAGNESIUM CITRATE 300 ML BOTTLE PO PRN (09:46)
[2021-01-01] MEDS ORDERED: MAG HYDROX/AL HYDROX/SIMETH 30 ML UNIT-DOSE CUP PO PRN (09:46)
[2021-01-01] MEDS ORDERED: NICOTINE 10 MG CARTRIDGE (INHALER) IH PRN (09:46)
[2021-01-01] MEDS: NICOTINE 7 MG/24 HOURS TOPICAL PATCH TD SCH (11:29)
[2021-01-01] MEDS: PRENATAL VITAMINS W/ FOLIC ACID TABLET (FP) PO SCH (11:29)
[2021-01-01] MEDS: hydrOXYzine PAMOATE 25 MG CAPSULE (FP) PO SCH ×4 (11:30→21:46)
[2021-01-01] MEDS ORDERED: ALBUTEROL SO4 HFA INHALER IH PRN (12:01)
[2021-01-01 14:44] LABS: HEMATOCRIT 40.2 % (35.4-49); HEMOGLOBIN 13.7 GM/dL (11.7-16.9); MCH 30.2 pg (25.7-33.7); MEAN CELL VOLUME 88.8 fl (80-96); MEAN PLT VOLUME 7.6 fl (7.5-11.1); PLATELET COUNT 379 10^3/uL (134-434); RBC 4.53 M/mm3 (4.00-5.60)
[2021-01-01 14:52] LABS: CALCIUM 9.4 mg/dL (8.5-10.1)
[2021-01-01 14:53] LABS: ALBUMIN 4.4 g/dl (3.4-5.0); BLOOD UREA NITROGEN 6.8 mg/dL (7-18)
[2021-01-01 14:56] LABS: CREATININE 0.9 mg/dL (0.55-1.3)
[2021-01-01 14:57] LABS: BILIRUBIN,TOTAL 0.4 mg/dL (0.2-1); TOT PROT 8.2 g/dl (6.4-8.2)
[2021-01-01 15:17] LABS: SYPHILIS W/ RPR CONF NON-REACTIVE (NONREACTIVE)
[2021-01-01] MEDS: THIAMINE HCL 100 MG TABLET (FP) PO SCH (21:46)
[2021-01-01] MEDS: MELATONIN 5 MG TABLETS PO SCH (21:46)
[2021-01-02] MEDS: hydrOXYzine PAMOATE 25 MG CAPSULE (FP) PO SCH ×5 (06:35→21:36)
[2021-01-02] MEDS: IBUPROFEN 400 MG TABLET (FP) PO PRN (06:36)
[2021-01-02] MEDS: NICOTINE 7 MG/24 HOURS TOPICAL PATCH TD SCH (09:40)
[2021-01-02] MEDS: PRENATAL VITAMINS W/ FOLIC ACID TABLET (FP) PO SCH (09:40)
[2021-01-02 17:01] LABS: EPI CELLS 21 /uL (0-25.1); HYALINE CASTS 2 /uL (0-3.1); URINE APPEARANCE CLEAR; URINE BACTERIA 493 /uL (0-1359); URINE BILIRUBIN NEGATIVE (NEGATIVE); URINE COLOR YELLOW; URINE GLUCOSE (UA) NEGATIVE (NEGATIVE); URINE KETONE TRACE (NEGATIVE); URINE LEUK ESTERASE TRACE (NEGATIVE); URINE NITRITE NEGATIVE (NEGATIVE); URINE PROTEIN NEGATIVE (NEGATIVE); URINE RBC 5 /uL (0-23.9); URINE UROBILINOGEN 0.2 mg/dL (0.2-1.0); URINE WBC 45 /uL (0-25.8)
[2021-01-02] MEDS: MELATONIN 5 MG TABLETS PO SCH (21:35)
[2021-01-02] MEDS: THIAMINE HCL 100 MG TABLET (FP) PO SCH (21:35)
[2021-01-03] MEDS: hydrOXYzine PAMOATE 25 MG CAPSULE (FP) PO SCH ×5 (06:52→21:19)
[2021-01-03] MEDS: PRENATAL VITAMINS W/ FOLIC ACID TABLET (FP) PO SCH (09:42)
[2021-01-03] MEDS: NICOTINE 7 MG/24 HOURS TOPICAL PATCH TD SCH (09:42)
[2021-01-03] MEDS: MELATONIN 5 MG TABLETS PO SCH (21:19)
[2021-01-03] MEDS: THIAMINE HCL 100 MG TABLET (FP) PO SCH (21:19)
[2021-01-04] MEDS: hydrOXYzine PAMOATE 25 MG CAPSULE (FP) PO SCH ×3 (06:44→13:01)
[2021-01-04] MEDS: IBUPROFEN 400 MG TABLET (FP) PO PRN (09:06)
[2021-01-04] MEDS: PRENATAL VITAMINS W/ FOLIC ACID TABLET (FP) PO SCH (09:07)
[2021-01-04] MEDS: NICOTINE 7 MG/24 HOURS TOPICAL PATCH TD SCH (09:07)
[2021-01-04] MEDS ORDERED: hydrOXYzine PAMOATE 25 MG CAPSULE (FP) PO PRN (13:10)
[2021-01-04] MEDS: MELATONIN 5 MG TABLETS PO SCH (21:31)
[2021-01-04] MEDS: THIAMINE HCL 100 MG TABLET (FP) PO SCH (21:31)
[2021-01-04] MEDS: METHOCARBAMOL 500 MG TABLET PO PRN (22:26)
[2021-01-05] MEDS: NICOTINE 7 MG/24 HOURS TOPICAL PATCH TD SCH (09:33)
[2021-01-05] MEDS: PRENATAL VITAMINS W/ FOLIC ACID TABLET (FP) PO SCH (09:33)
[2021-01-05 10:08] LABS: SARS-CoV-2 NAA Not Detected (Not Detected)
[2021-01-05] MEDS: MELATONIN 5 MG TABLETS PO SCH (21:41)
[2021-01-05] MEDS: THIAMINE HCL 100 MG TABLET (FP) PO SCH (21:41)
[2021-01-06] MEDS: PRENATAL VITAMINS W/ FOLIC ACID TABLET (FP) PO SCH (09:36)
[2021-01-06] MEDS: METHOCARBAMOL 500 MG TABLET PO PRN (09:36)
[2021-01-06] MEDS: NICOTINE 7 MG/24 HOURS TOPICAL PATCH TD SCH (09:59)
[2021-01-06] MEDS: LIDOCAINE 5% TOPICAL PATCH TP SCH (15:16)
[2021-01-06] MEDS: LIDOCAINE PATCH REMOVAL MC SCH (21:55)
[2021-01-06] MEDS: MELATONIN 5 MG TABLETS PO SCH (21:55)
[2021-01-06] MEDS: THIAMINE HCL 100 MG TABLET (FP) PO SCH (21:55)
[2021-01-07] MEDS: LIDOCAINE 5% TOPICAL PATCH TP SCH (09:03)
[2021-01-07] MEDS: NICOTINE 7 MG/24 HOURS TOPICAL PATCH TD SCH (09:04)
[2021-01-07] MEDS: PRENATAL VITAMINS W/ FOLIC ACID TABLET (FP) PO SCH (09:04)
[2021-01-07] MEDS: LIDOCAINE PATCH REMOVAL MC SCH (21:22)
[2021-01-07] MEDS: SUVOREXANT 10 MG TABLET PO PRN (21:23)
[2021-01-07] MEDS: THIAMINE HCL 100 MG TABLET (FP) PO SCH (21:24)
[2021-01-08] MEDS: LIDOCAINE 5% TOPICAL PATCH TP SCH (09:40)
[2021-01-08] MEDS: NICOTINE 7 MG/24 HOURS TOPICAL PATCH TD SCH (09:40)
[2021-01-08] MEDS: PRENATAL VITAMINS W/ FOLIC ACID TABLET (FP) PO SCH (09:40)
[2021-01-08] MEDS ORDERED: PT OWN MED DRAWER 7, Y5N ONE (15:57)
[2021-01-08] MEDS: MINERAL OIL/PETROLAT/WATER TOPICAL CREAM 113 GM JAR TP PRN (15:58)
[2021-01-08] MEDS: LIDOCAINE PATCH REMOVAL MC SCH (21:37)
[2021-01-08] MEDS: SUVOREXANT 10 MG TABLET PO PRN (21:38)
[2021-01-08] MEDS: THIAMINE HCL 100 MG TABLET (FP) PO SCH (21:39)
[2021-01-09] MEDS: PRENATAL VITAMINS W/ FOLIC ACID TABLET (FP) PO SCH (09:24)
[2021-01-09] MEDS: NICOTINE 7 MG/24 HOURS TOPICAL PATCH TD SCH (09:24)
[2021-01-09] MEDS: LIDOCAINE 5% TOPICAL PATCH TP SCH (09:24)
[2021-01-09] MEDS: LIDOCAINE PATCH REMOVAL MC SCH (21:45)
[2021-01-09] MEDS: SUVOREXANT 10 MG TABLET PO PRN (21:46)
[2021-01-09] MEDS: THIAMINE HCL 100 MG TABLET (FP) PO SCH (21:46)
[2021-01-10] MEDS: NICOTINE 7 MG/24 HOURS TOPICAL PATCH TD SCH (09:24)
[2021-01-10] MEDS: PRENATAL VITAMINS W/ FOLIC ACID TABLET (FP) PO SCH (09:24)
[2021-01-10] MEDS: LIDOCAINE 5% TOPICAL PATCH TP SCH (09:25)
[2021-01-10] MEDS: SUVOREXANT 10 MG TABLET PO PRN (21:03)
[2021-01-10] MEDS ORDERED: PT OWN MED DRAWER 7, Y5N ONE (21:04)
[2021-01-10] MEDS: LIDOCAINE PATCH REMOVAL MC SCH (21:04)
[2021-01-10] MEDS: THIAMINE HCL 100 MG TABLET (FP) PO SCH (21:04)
[2021-01-11] MEDS: PRENATAL VITAMINS W/ FOLIC ACID TABLET (FP) PO SCH (09:50)
[2021-01-11] MEDS: NICOTINE 7 MG/24 HOURS TOPICAL PATCH TD SCH (09:50)
[2021-01-11] MEDS: LIDOCAINE 5% TOPICAL PATCH TP SCH (09:50)
[2021-01-11] MEDS: THIAMINE HCL 100 MG TABLET (FP) PO SCH (21:35)
[2021-01-11] MEDS: LIDOCAINE PATCH REMOVAL MC SCH (21:36)
[2021-01-11] MEDS: SUVOREXANT 10 MG TABLET PO PRN (21:37)
[2021-01-12] MEDS: NICOTINE 7 MG/24 HOURS TOPICAL PATCH TD SCH (09:50)
[2021-01-12] MEDS: PRENATAL VITAMINS W/ FOLIC ACID TABLET (FP) PO SCH (09:50)
[2021-01-12] MEDS: LIDOCAINE 5% TOPICAL PATCH TP SCH (09:50)
[2021-01-12] MEDS: LIDOCAINE PATCH REMOVAL MC SCH (21:06)
[2021-01-12] MEDS: THIAMINE HCL 100 MG TABLET (FP) PO SCH (21:06)
[2021-01-12] MEDS: SUVOREXANT 10 MG TABLET PO PRN (21:07)
[2021-01-13] MEDS: PRENATAL VITAMINS W/ FOLIC ACID TABLET (FP) PO SCH (10:23)
[2021-01-13] MEDS: LIDOCAINE 5% TOPICAL PATCH TP SCH (10:24)
[2021-01-13] MEDS: NICOTINE 7 MG/24 HOURS TOPICAL PATCH TD SCH (10:24)
[2021-01-13] MEDS: THIAMINE HCL 100 MG TABLET (FP) PO SCH (21:19)
[2021-01-13] MEDS: SUVOREXANT 10 MG TABLET PO PRN (21:19)
[2021-01-13] MEDS: LIDOCAINE PATCH REMOVAL MC SCH (21:22)
[2021-01-14] MEDS: LIDOCAINE 5% TOPICAL PATCH TP SCH (09:36)
[2021-01-14] MEDS: PRENATAL VITAMINS W/ FOLIC ACID TABLET (FP) PO SCH (09:36)
[2021-01-14] MEDS: NICOTINE 7 MG/24 HOURS TOPICAL PATCH TD SCH (09:37)
[2021-01-14] MEDS: COLLOIDAL OATMEAL 1 BAR EACH TP PRN (11:49)
[2021-01-14] MEDS: LIDOCAINE PATCH REMOVAL MC SCH (21:11)
[2021-01-14] MEDS: THIAMINE HCL 100 MG TABLET (FP) PO SCH (21:12)
[2021-01-14] MEDS: SUVOREXANT 10 MG TABLET PO PRN (21:13)
[2021-01-15] MEDS: PRENATAL VITAMINS W/ FOLIC ACID TABLET (FP) PO SCH (09:28)
[2021-01-15] MEDS: NICOTINE 7 MG/24 HOURS TOPICAL PATCH TD SCH (09:29)
[2021-01-15] MEDS: LIDOCAINE 5% TOPICAL PATCH TP SCH (09:29)
[2021-01-15] MEDS: SUVOREXANT 10 MG TABLET PO PRN (21:37)
[2021-01-15] MEDS: THIAMINE HCL 100 MG TABLET (FP) PO SCH (21:37)
[2021-01-15] MEDS: LIDOCAINE PATCH REMOVAL MC SCH (21:38)
[2021-01-16] MEDS: NICOTINE 7 MG/24 HOURS TOPICAL PATCH TD SCH (10:09)
[2021-01-16] MEDS: LIDOCAINE 5% TOPICAL PATCH TP SCH (10:09)
[2021-01-16] MEDS: PRENATAL VITAMINS W/ FOLIC ACID TABLET (FP) PO SCH (10:09)
[2021-01-16] MEDS: LIDOCAINE PATCH REMOVAL MC SCH (21:39)
[2021-01-16] MEDS: THIAMINE HCL 100 MG TABLET (FP) PO SCH (21:39)
[2021-01-16] MEDS: SUVOREXANT 10 MG TABLET PO PRN (22:25)
[2021-01-17] MEDS: LIDOCAINE 5% TOPICAL PATCH TP SCH (09:58)
[2021-01-17] MEDS: PRENATAL VITAMINS W/ FOLIC ACID TABLET (FP) PO SCH (09:58)
[2021-01-17] MEDS: NICOTINE 7 MG/24 HOURS TOPICAL PATCH TD SCH (09:58)
[2021-01-17] MEDS: IBUPROFEN 400 MG TABLET (FP) PO PRN (10:00)
[2021-01-17] MEDS: SUVOREXANT 10 MG TABLET PO PRN (21:37)
[2021-01-17] MEDS: THIAMINE HCL 100 MG TABLET (FP) PO SCH (21:37)
[2021-01-17] MEDS: LIDOCAINE PATCH REMOVAL MC SCH (21:38)
[2021-01-18] MEDS: COLLOIDAL OATMEAL 1 BAR EACH TP PRN (09:35)
[2021-01-18] MEDS: IBUPROFEN 400 MG TABLET (FP) PO PRN (09:35)
[2021-01-18] MEDS: LIDOCAINE 5% TOPICAL PATCH TP SCH (11:00)
[2021-01-18] MEDS: NICOTINE 7 MG/24 HOURS TOPICAL PATCH TD SCH (11:00)
[2021-01-18] MEDS: PRENATAL VITAMINS W/ FOLIC ACID TABLET (FP) PO SCH (11:03)
[2021-01-18] MEDS: LIDOCAINE PATCH REMOVAL MC SCH (21:34)
[2021-01-18] MEDS: THIAMINE HCL 100 MG TABLET (FP) PO SCH (21:34)
[2021-01-18] MEDS: SUVOREXANT 10 MG TABLET PO PRN (21:34)
[2021-01-19] MEDS: NICOTINE 7 MG/24 HOURS TOPICAL PATCH TD SCH (10:12)
[2021-01-19] MEDS: PRENATAL VITAMINS W/ FOLIC ACID TABLET (FP) PO SCH (10:12)
[2021-01-19] MEDS: LIDOCAINE 5% TOPICAL PATCH TP SCH (10:13)
[2021-01-19] MEDS: SUVOREXANT 10 MG TABLET PO PRN (21:30)
[2021-01-19] MEDS: LIDOCAINE PATCH REMOVAL MC SCH (21:30)
[2021-01-19] MEDS: THIAMINE HCL 100 MG TABLET (FP) PO SCH (21:30)
[2021-01-20] MEDS: PRENATAL VITAMINS W/ FOLIC ACID TABLET (FP) PO SCH (09:18)
[2021-01-20] MEDS: NICOTINE 7 MG/24 HOURS TOPICAL PATCH TD SCH (09:19)
[2021-01-20] MEDS: LIDOCAINE 5% TOPICAL PATCH TP SCH (09:19)
[2021-01-20] MEDS: SUVOREXANT 10 MG TABLET PO PRN (21:30)
[2021-01-20] MEDS: THIAMINE HCL 100 MG TABLET (FP) PO SCH (21:31)
[2021-01-20] MEDS: LIDOCAINE PATCH REMOVAL MC SCH (21:31)
[2021-01-21] MEDS: LIDOCAINE 5% TOPICAL PATCH TP SCH (09:26)
[2021-01-21] MEDS: PRENATAL VITAMINS W/ FOLIC ACID TABLET (FP) PO SCH (09:26)
[2021-01-21] MEDS: NICOTINE 7 MG/24 HOURS TOPICAL PATCH TD SCH (09:26)
[2021-01-21] MEDS: MINERAL OIL/PETROLAT/WATER TOPICAL CREAM 113 GM JAR TP PRN (09:26)
[2021-01-21] MEDS: SUVOREXANT 10 MG TABLET PO PRN (21:23)
[2021-01-21] MEDS: LIDOCAINE PATCH REMOVAL MC SCH (21:23)
[2021-01-21] MEDS: THIAMINE HCL 100 MG TABLET (FP) PO SCH (21:23)
[2021-01-21] MEDS: cloNIDine HCL 0.1 MG TABLET PO PRN (22:25)
[2021-01-22] MEDS: PRENATAL VITAMINS W/ FOLIC ACID TABLET (FP) PO SCH (10:06)
[2021-01-22] MEDS: ACETAMINOPHEN 325 MG TABLET (FP) PO PRN (10:06)
[2021-01-22] MEDS: LIDOCAINE 5% TOPICAL PATCH TP SCH (10:08)
[2021-01-22] MEDS: NICOTINE 7 MG/24 HOURS TOPICAL PATCH TD SCH (10:08)
[2021-01-22] MEDS: SUVOREXANT 10 MG TABLET PO PRN (21:41)
[2021-01-22] MEDS: THIAMINE HCL 100 MG TABLET (FP) PO SCH (21:41)
[2021-01-22] MEDS: LIDOCAINE PATCH REMOVAL MC SCH (21:42)
[2021-01-23] MEDS: IBUPROFEN 400 MG TABLET (FP) PO PRN (09:44)
[2021-01-23] MEDS: LIDOCAINE 5% TOPICAL PATCH TP SCH (09:45)
[2021-01-23] MEDS: NICOTINE 7 MG/24 HOURS TOPICAL PATCH TD SCH (09:46)
[2021-01-23] MEDS: PRENATAL VITAMINS W/ FOLIC ACID TABLET (FP) PO SCH (09:46)
[2021-01-23] MEDS: SUVOREXANT 10 MG TABLET PO PRN (21:31)
[2021-01-23] MEDS: THIAMINE HCL 100 MG TABLET (FP) PO SCH (21:31)
[2021-01-23] MEDS: cloNIDine HCL 0.1 MG TABLET PO PRN (21:31)
[2021-01-23] MEDS: LIDOCAINE PATCH REMOVAL MC SCH (21:32)
[2021-01-24] MEDS: PRENATAL VITAMINS W/ FOLIC ACID TABLET (FP) PO SCH (09:41)
[2021-01-24] MEDS: ACETAMINOPHEN 325 MG TABLET (FP) PO PRN (09:41)
[2021-01-24] MEDS: LIDOCAINE 5% TOPICAL PATCH TP SCH (09:43)
[2021-01-24] MEDS: NICOTINE 7 MG/24 HOURS TOPICAL PATCH TD SCH (09:43)
[2021-01-24] MEDS: SUVOREXANT 10 MG TABLET PO PRN (21:23)
[2021-01-24] MEDS: METHOCARBAMOL 500 MG TABLET PO PRN (21:23)
[2021-01-24] MEDS: LIDOCAINE PATCH REMOVAL MC SCH (21:24)
[2021-01-24] MEDS: THIAMINE HCL 100 MG TABLET (FP) PO SCH (21:24)
[2021-01-25] MEDS: PRENATAL VITAMINS W/ FOLIC ACID TABLET (FP) PO SCH (09:39)
[2021-01-25] MEDS: NICOTINE 7 MG/24 HOURS TOPICAL PATCH TD SCH (09:39)
[2021-01-25] MEDS: LIDOCAINE 5% TOPICAL PATCH TP SCH (09:39)
[2021-01-25] MEDS: IBUPROFEN 400 MG TABLET (FP) PO PRN (09:40)
[2021-01-25] MEDS: COLLOIDAL OATMEAL 1 BAR EACH TP PRN (10:37)
[2021-01-25] MEDS: SUVOREXANT 10 MG TABLET PO PRN (22:02)
[2021-01-25] MEDS: THIAMINE HCL 100 MG TABLET (FP) PO SCH (22:02)
[2021-01-25] MEDS: LIDOCAINE PATCH REMOVAL MC SCH (22:03)
[2021-01-26] MEDS: METHOCARBAMOL 500 MG TABLET PO PRN (09:36)
[2021-01-26] MEDS: PRENATAL VITAMINS W/ FOLIC ACID TABLET (FP) PO SCH (09:36)
[2021-01-26] MEDS: NICOTINE 7 MG/24 HOURS TOPICAL PATCH TD SCH (09:37)
[2021-01-26] MEDS: LIDOCAINE 5% TOPICAL PATCH TP SCH (09:37)
[2021-01-26] MEDS: SUVOREXANT 10 MG TABLET PO PRN (21:44)
[2021-01-26] MEDS: THIAMINE HCL 100 MG TABLET (FP) PO SCH (21:44)
[2021-01-26] MEDS: LIDOCAINE PATCH REMOVAL MC SCH (21:45)
[2021-01-27] MEDS: LIDOCAINE 5% TOPICAL PATCH TP SCH (09:53)
[2021-01-27] MEDS: NICOTINE 7 MG/24 HOURS TOPICAL PATCH TD SCH (09:53)
[2021-01-27] MEDS: PRENATAL VITAMINS W/ FOLIC ACID TABLET (FP) PO SCH (09:53)
[2021-01-27] MEDS: THIAMINE HCL 100 MG TABLET (FP) PO SCH (21:37)
[2021-01-27] MEDS: SUVOREXANT 10 MG TABLET PO PRN (21:37)
[2021-01-27] MEDS: LIDOCAINE PATCH REMOVAL MC SCH (21:38)
[2021-01-28] MEDS: LIDOCAINE 5% TOPICAL PATCH TP SCH (09:40)
[2021-01-28] MEDS: PRENATAL VITAMINS W/ FOLIC ACID TABLET (FP) PO SCH (09:40)
[2021-01-28] MEDS: NICOTINE 7 MG/24 HOURS TOPICAL PATCH TD SCH (09:40)
[2021-01-28] MEDS: THIAMINE HCL 100 MG TABLET (FP) PO SCH (21:18)
[2021-01-28] MEDS: SUVOREXANT 10 MG TABLET PO PRN (21:18)
[2021-01-28] MEDS: LIDOCAINE PATCH REMOVAL MC SCH (21:19)
[2021-01-29 06:28] VITALS: BP 146/81; PULSE 97; TEMP 97.3
== END 2021-01-29 07:15 | disposition home or self-care (01) | DRG 772 ==
LOC: YASAS 09:09 → Y3E 10:24
PROVIDERS: ADMIT Allergy & Immunology; ATTEND Allergy & Immunology
PROC: HZ42ZZZ Group Counseling for Substance Abuse Treatment, Cognitive-Behavioral (ICD-10-PCS; principal; 2021-01-01)
DX: F10.20 Alcohol dependence, uncomplicated (principal); F14.20 Cocaine dependence, uncomplicated; F17.210 Nicotine dependence, cigarettes, uncomplicated; F19.24 Other psychoactive substance dependence with psychoactive substance-induced mood disorder; F19.282 Other psychoactive substance dependence with psychoactive substance-induced sleep disorder; J45.909 Unspecified asthma, uncomplicated; M54.59 Other low back pain; G89.29 Other chronic pain; Z87.828 Personal history of other (healed) physical injury and trauma; Z91.013 Allergy to seafood; Z56.0 Unemployment, unspecified; Z59.01 Sheltered homelessness
CPT/HCPCS: 36415; 80053; 81003; 85027; 86780; 86803; 87811; C9803; J0735; U0003; U0005

== ENCOUNTER 2021-10-08 09:50 | Inpatient (IN) | payer OTHER ==
[2021-10-08 12:49] VITALS: BMI 21.7
[2021-10-08] MEDS ORDERED: BISMUTH SUBSALICYLATE 524 MG/30 ML PO PRN (15:26)
[2021-10-08] MEDS ORDERED: MAG HYDROX/AL HYDROX/SIMETH 30 ML UNIT-DOSE CUP PO PRN (15:26)
[2021-10-08] MEDS ORDERED: IBUPROFEN 600 MG TABLET (FP) PO PRN (15:26)
[2021-10-08] MEDS ORDERED: MAGNESIUM CITRATE 300 ML BOTTLE PO PRN (15:26)
[2021-10-08] MEDS ORDERED: MAGNESIUM HYDROX 2400MG/30ML ORAL SUSPENSION 30 ML CUP PO PRN (15:26)
[2021-10-08] MEDS ORDERED: IBUPROFEN 400 MG TABLET (FP) PO PRN (15:26)
[2021-10-08] MEDS ORDERED: METHOCARBAMOL 500 MG TABLET PO PRN (15:26)
[2021-10-08] MEDS ORDERED: LOPERAMIDE HCL 2 MG CAPSULE PO PRN (15:26)
[2021-10-08] MEDS ORDERED: guaiFENesin 200 MG/10 ML 10 ML UNIT-DOSE CUPS PO PRN (15:26)
[2021-10-08] MEDS ORDERED: BENZOCAINE/MENTHOL (CHLORASEPTIC ) LOZENGE MM PRN (15:26)
[2021-10-08] MEDS ORDERED: ACETAMINOPHEN 325 MG TABLET (FP) PO PRN ×2 (15:26)
[2021-10-08] MEDS ORDERED: P-EPHED 60MG/TRIPROLIDI 2.5MG TABLET PO PRN (15:26)
[2021-10-08] MEDS ORDERED: hydrOXYzine PAMOATE 25 MG CAPSULE (FP) PO PRN (15:26)
[2021-10-08] MEDS ORDERED: ONDANSETRON *ODT* 4 MG TABLET SL PRN (15:26)
[2021-10-08] MEDS ORDERED: DICYCLOMINE HCL 10 MG CAPSULE PO PRN (15:26)
[2021-10-08] MEDS: THIAMINE HCL 100 MG TABLET (FP) PO SCH (22:50)
[2021-10-08] MEDS: MELATONIN 5 MG TABLETS PO PRN (22:50)
[2021-10-09] MEDS: PRENATAL VITAMINS W/ FOLIC ACID TABLET (FP) PO SCH (10:38)
[2021-10-09 14:19] LABS: ALBUMIN 3.3 g/dl (3.4-5.0); BLOOD UREA NITROGEN 13.6 mg/dL (7-18); CALCIUM 9.1 mg/dL (8.5-10.1)
[2021-10-09 14:21] LABS: CREATININE 0.9 mg/dL (0.55-1.3)
[2021-10-09 14:22] LABS: HEMATOCRIT 39.1 % (35.4-49); HEMOGLOBIN 13.4 GM/dL (11.7-16.9); MCH 30.7 pg (25.7-33.7); MCHC 34.2 g/dl (32.0-35.9); MEAN CELL VOLUME 89.8 fl (80-96); MEAN PLT VOLUME 7.3 fl (7.5-11.1); PLATELET COUNT 406 10^3/uL (134-434); RBC 4.36 M/mm3 (4.00-5.60); RDW 16.4 % (11.9-15.9); TOT PROT 6.7 g/dl (6.4-8.2); WHITE BLOOD COUNT 4.9 K/mm3 (4.0-10.0)
[2021-10-09 14:23] LABS: BILIRUBIN,TOTAL 0.6 mg/dL (0.2-1)
[2021-10-09 15:15] LABS: HIV INTERPRETATION NEGATIVE (NEGATIVE)
[2021-10-09] MEDS: THIAMINE HCL 100 MG TABLET (FP) PO SCH (21:33)
[2021-10-09] MEDS: MELATONIN 5 MG TABLETS PO PRN (21:34)
[2021-10-10] MEDS: PRENATAL VITAMINS W/ FOLIC ACID TABLET (FP) PO SCH (10:30)
[2021-10-10] MEDS: THIAMINE HCL 100 MG TABLET (FP) PO SCH (22:35)
[2021-10-11] MEDS: PRENATAL VITAMINS W/ FOLIC ACID TABLET (FP) PO SCH (10:22)
[2021-10-11] MEDS ORDERED: ALBUTEROL SO4 HFA INHALER IH PRN (12:25)
[2021-10-11 12:57] VITALS: RESP 18
[2021-10-11 17:56] VITALS: BP 136/76; PULSE 76; TEMP 97.1
== END 2021-10-11 17:38 | disposition other institution (70) | DRG 774 ==
LOC: YASAS 09:50 → UNDOADMIN 15:36 → Y3N 15:36
PROVIDERS: ADMIT Allergy & Immunology; ATTEND Surgery
PROC: HZ2ZZZZ Detoxification Services for Substance Abuse Treatment (ICD-10-PCS; principal; 2021-10-08)
DX: F10.230 Alcohol dependence with withdrawal, uncomplicated (principal); F14.20 Cocaine dependence, uncomplicated; F17.210 Nicotine dependence, cigarettes, uncomplicated; J45.909 Unspecified asthma, uncomplicated; M54.50 Low back pain, unspecified; G89.29 Other chronic pain; Z91.013 Allergy to seafood
CPT/HCPCS: 36415; 80053; 85027; 86780; 87389; C9803-CS; U0003; U0005

== ENCOUNTER 2021-10-11 17:44 | Inpatient (IN) | payer OTHER ==
[2021-10-11] MEDS ORDERED: LOPERAMIDE HCL 2 MG CAPSULE PO PRN (20:42)
[2021-10-11] MEDS ORDERED: BENZOCAINE/MENTHOL (CHLORASEPTIC ) LOZENGE MM PRN (20:42)
[2021-10-11] MEDS ORDERED: NICOTINE POLACRILEX 2 MG GUM BUC PRN (20:42)
[2021-10-11] MEDS ORDERED: MAGNESIUM HYDROX 2400MG/30ML ORAL SUSPENSION 30 ML CUP PO PRN (20:42)
[2021-10-11] MEDS ORDERED: ACETAMINOPHEN 325 MG TABLET (FP) PO PRN (20:42)
[2021-10-11] MEDS ORDERED: MAG HYDROX/AL HYDROX/SIMETH 30 ML UNIT-DOSE CUP PO PRN (20:42)
[2021-10-11] MEDS ORDERED: MAGNESIUM CITRATE 300 ML BOTTLE PO PRN (20:42)
[2021-10-11] MEDS ORDERED: guaiFENesin 200 MG/10 ML 10 ML UNIT-DOSE CUPS PO PRN (20:42)
[2021-10-11] MEDS ORDERED: P-EPHED 60MG/TRIPROLIDI 2.5MG TABLET PO PRN (20:42)
[2021-10-11] MEDS ORDERED: ALBUTEROL SO4 HFA INHALER IH PRN (20:43)
[2021-10-11] MEDS: THIAMINE HCL 100 MG TABLET (FP) PO SCH (21:30)
[2021-10-11] MEDS: MELATONIN 5 MG TABLETS PO PRN (21:30)
[2021-10-12] MEDS: PRENATAL VITAMINS W/ FOLIC ACID TABLET (FP) PO SCH (10:13)
[2021-10-12] MEDS: MELATONIN 5 MG TABLETS PO PRN (21:27)
[2021-10-12] MEDS: THIAMINE HCL 100 MG TABLET (FP) PO SCH (21:27)
[2021-10-13] MEDS: PRENATAL VITAMINS W/ FOLIC ACID TABLET (FP) PO SCH (10:34)
[2021-10-13 16:32] LABS: URINE APPEARANCE CLEAR; URINE BILIRUBIN NEGATIVE (NEGATIVE); URINE COLOR YELLOW; URINE GLUCOSE (UA) NEGATIVE (NEGATIVE); URINE KETONE TRACE (NEGATIVE); URINE LEUK ESTERASE NEGATIVE (NEGATIVE); URINE NITRITE NEGATIVE (NEGATIVE); URINE PROTEIN NEGATIVE (NEGATIVE); URINE UROBILINOGEN 0.2 mg/dL (0.2-1.0)
[2021-10-13] MEDS: MELATONIN 5 MG TABLETS PO PRN (21:19)
[2021-10-13] MEDS: THIAMINE HCL 100 MG TABLET (FP) PO SCH (21:19)
[2021-10-14] MEDS: PRENATAL VITAMINS W/ FOLIC ACID TABLET (FP) PO SCH (09:44)
[2021-10-14] MEDS: MELATONIN 5 MG TABLETS PO PRN (21:23)
[2021-10-14] MEDS: THIAMINE HCL 100 MG TABLET (FP) PO SCH (21:23)
[2021-10-15] MEDS: PRENATAL VITAMINS W/ FOLIC ACID TABLET (FP) PO SCH (10:05)
[2021-10-15] MEDS: MELATONIN 5 MG TABLETS PO PRN (21:25)
[2021-10-15] MEDS: THIAMINE HCL 100 MG TABLET (FP) PO SCH (21:25)
[2021-10-16] MEDS: PRENATAL VITAMINS W/ FOLIC ACID TABLET (FP) PO SCH (09:48)
[2021-10-16] MEDS: MELATONIN 5 MG TABLETS PO PRN (21:34)
[2021-10-16] MEDS: THIAMINE HCL 100 MG TABLET (FP) PO SCH (21:34)
[2021-10-17] MEDS: PRENATAL VITAMINS W/ FOLIC ACID TABLET (FP) PO SCH (10:33)
[2021-10-17] MEDS: MELATONIN 5 MG TABLETS PO PRN (21:38)
[2021-10-17] MEDS: THIAMINE HCL 100 MG TABLET (FP) PO SCH (21:39)
[2021-10-18] MEDS: PRENATAL VITAMINS W/ FOLIC ACID TABLET (FP) PO SCH (10:15)
[2021-10-18] MEDS: MELATONIN 5 MG TABLETS PO PRN (21:46)
[2021-10-18] MEDS: THIAMINE HCL 100 MG TABLET (FP) PO SCH (21:47)
[2021-10-19] MEDS: PRENATAL VITAMINS W/ FOLIC ACID TABLET (FP) PO SCH (10:29)
[2021-10-19] MEDS: THIAMINE HCL 100 MG TABLET (FP) PO SCH (21:18)
[2021-10-19] MEDS: MELATONIN 5 MG TABLETS PO PRN (21:18)
[2021-10-20] MEDS: PRENATAL VITAMINS W/ FOLIC ACID TABLET (FP) PO SCH (09:59)
[2021-10-20] MEDS: THIAMINE HCL 100 MG TABLET (FP) PO SCH (21:10)
[2021-10-20] MEDS: MELATONIN 5 MG TABLETS PO PRN (21:10)
[2021-10-21] MEDS: PRENATAL VITAMINS W/ FOLIC ACID TABLET (FP) PO SCH (09:54)
[2021-10-21] MEDS: MELATONIN 5 MG TABLETS PO PRN (21:16)
[2021-10-21] MEDS: THIAMINE HCL 100 MG TABLET (FP) PO SCH (21:16)
[2021-10-22] MEDS: PRENATAL VITAMINS W/ FOLIC ACID TABLET (FP) PO SCH (10:15)
[2021-10-22] MEDS: THIAMINE HCL 100 MG TABLET (FP) PO SCH (21:15)
[2021-10-23] MEDS: PRENATAL VITAMINS W/ FOLIC ACID TABLET (FP) PO SCH (10:26)
[2021-10-23] MEDS: THIAMINE HCL 100 MG TABLET (FP) PO SCH (21:27)
[2021-10-23] MEDS: MELATONIN 5 MG TABLETS PO PRN (21:27)
[2021-10-24] MEDS: PRENATAL VITAMINS W/ FOLIC ACID TABLET (FP) PO SCH (09:55)
[2021-10-24] MEDS: MELATONIN 5 MG TABLETS PO PRN (21:01)
[2021-10-24] MEDS: THIAMINE HCL 100 MG TABLET (FP) PO SCH (21:01)
[2021-10-24] MEDS: hydrOXYzine PAMOATE 25 MG CAPSULE (FP) PO PRN (21:02)
[2021-10-25] MEDS: PRENATAL VITAMINS W/ FOLIC ACID TABLET (FP) PO SCH (11:12)
[2021-10-25] MEDS: THIAMINE HCL 100 MG TABLET (FP) PO SCH (22:28)
[2021-10-26] MEDS: PRENATAL VITAMINS W/ FOLIC ACID TABLET (FP) PO SCH (10:13)
[2021-10-26] MEDS: MELATONIN 5 MG TABLETS PO PRN (21:12)
[2021-10-26] MEDS: THIAMINE HCL 100 MG TABLET (FP) PO SCH (21:12)
[2021-10-26] MEDS: hydrOXYzine PAMOATE 25 MG CAPSULE (FP) PO PRN (21:12)
[2021-10-27] MEDS: PRENATAL VITAMINS W/ FOLIC ACID TABLET (FP) PO SCH (10:15)
[2021-10-27] MEDS: THIAMINE HCL 100 MG TABLET (FP) PO SCH (21:47)
[2021-10-28] MEDS: PRENATAL VITAMINS W/ FOLIC ACID TABLET (FP) PO SCH (09:49)
[2021-10-28] MEDS: IBUPROFEN 400 MG TABLET (FP) PO PRN (21:21)
[2021-10-28] MEDS: MELATONIN 5 MG TABLETS PO PRN (21:21)
[2021-10-28] MEDS: THIAMINE HCL 100 MG TABLET (FP) PO SCH (21:21)
[2021-10-29] MEDS: PRENATAL VITAMINS W/ FOLIC ACID TABLET (FP) PO SCH (10:27)
[2021-10-29] MEDS: hydrOXYzine PAMOATE 25 MG CAPSULE (FP) PO PRN (21:14)
[2021-10-29] MEDS: THIAMINE HCL 100 MG TABLET (FP) PO SCH (21:14)
[2021-10-29] MEDS: MELATONIN 5 MG TABLETS PO PRN (21:14)
[2021-10-30] MEDS: PRENATAL VITAMINS W/ FOLIC ACID TABLET (FP) PO SCH (10:01)
[2021-10-30] MEDS: IBUPROFEN 400 MG TABLET (FP) PO PRN (13:42)
[2021-10-30] MEDS: MELATONIN 5 MG TABLETS PO PRN (21:23)
[2021-10-30] MEDS: THIAMINE HCL 100 MG TABLET (FP) PO SCH (21:23)
[2021-10-31 08:37] VITALS: PULSE 77; RESP 18
[2021-10-31] MEDS: PRENATAL VITAMINS W/ FOLIC ACID TABLET (FP) PO SCH (09:26)
[2021-10-31] MEDS: MELATONIN 5 MG TABLETS PO PRN (21:10)
[2021-10-31] MEDS: hydrOXYzine PAMOATE 25 MG CAPSULE (FP) PO PRN (21:10)
[2021-10-31] MEDS: THIAMINE HCL 100 MG TABLET (FP) PO SCH (21:10)
[2021-11-01 07:10] VITALS: BP 139/89; TEMP 98.4
[2021-11-01] MEDS: PRENATAL VITAMINS W/ FOLIC ACID TABLET (FP) PO SCH (09:52)
[2021-11-01] MEDS: IBUPROFEN 400 MG TABLET (FP) PO PRN (09:53)
[2021-11-01] MEDS: THIAMINE HCL 100 MG TABLET (FP) PO SCH (21:34)
[2021-11-01] MEDS: MELATONIN 5 MG TABLETS PO PRN (21:34)
== END 2021-11-02 00:46 | disposition left against medical advice (07) | DRG 770 ==
LOC: YASAS 17:44 → Y3W 17:46
PROVIDERS: ADMIT Allergy & Immunology; ATTEND Surgery
PROC: HZ42ZZZ Group Counseling for Substance Abuse Treatment, Cognitive-Behavioral (ICD-10-PCS; principal; 2021-10-11)
DX: F10.20 Alcohol dependence, uncomplicated (principal); F14.20 Cocaine dependence, uncomplicated; F17.210 Nicotine dependence, cigarettes, uncomplicated; F19.282 Other psychoactive substance dependence with psychoactive substance-induced sleep disorder; F19.24 Other psychoactive substance dependence with psychoactive substance-induced mood disorder; F32.A Depression, unspecified; J45.909 Unspecified asthma, uncomplicated; M54.50 Low back pain, unspecified; G89.29 Other chronic pain; Z91.013 Allergy to seafood
CPT/HCPCS: 81003

== ENCOUNTER 2023-03-17 16:15 | Inpatient (IN) | payer OTHER ==
[2023-03-17 16:42] VITALS: BMI 22.8
[2023-03-17] MEDS ORDERED: BENZOCAINE/MENTHOL (CHLORASEPTIC ) LOZENGE MM PRN (19:09)
[2023-03-17] MEDS ORDERED: MAG HYDROX/AL HYDROX/SIMETH 30 ML UNIT-DOSE CUP PO PRN (19:09)
[2023-03-17] MEDS ORDERED: hydrOXYzine PAMOATE 25 MG CAPSULE (FP) PO PRN (19:09)
[2023-03-17] MEDS ORDERED: POLYETHYLENE GLYCOL (HEALTHYLAX) 3350 17 GM PACKET PO PRN (19:09)
[2023-03-17] MEDS ORDERED: ONDANSETRON *ODT* 4 MG TABLET SL PRN (19:09)
[2023-03-17] MEDS ORDERED: BENZONATATE 200 MG CAPSULE PO PRN (19:09)
[2023-03-17] MEDS ORDERED: NICOTINE POLACRILEX 2 MG GUM BUC PRN (19:09)
[2023-03-17] MEDS ORDERED: DICYCLOMINE HCL 10 MG CAPSULE PO PRN (19:09)
[2023-03-17] MEDS ORDERED: MAGNESIUM HYDROX 2400MG/30ML ORAL SUSPENSION 30 ML CUP PO PRN (19:09)
[2023-03-17] MEDS ORDERED: NALOXONE HCL (KLOXXADO) 8 MG SPRAY NS PRN (19:09)
[2023-03-17] MEDS ORDERED: guaiFENesin 600 MG TABLET.ER (FP) PO PRN (19:09)
[2023-03-17] MEDS ORDERED: BISMUTH SUBSALICYLATE 524 MG/30 ML PO PRN (19:09)
[2023-03-17] MEDS ORDERED: IBUPROFEN 400 MG TABLET (FP) PO PRN (19:09)
[2023-03-17] MEDS ORDERED: IBUPROFEN 600 MG TABLET (FP) PO PRN (19:09)
[2023-03-17] MEDS ORDERED: ACETAMINOPHEN 325 MG TABLET (FP) PO PRN (19:09)
[2023-03-17] MEDS ORDERED: LOPERAMIDE HCL 2 MG CAPSULE PO PRN (19:09)
[2023-03-17] MEDS ORDERED: NALOXONE HCL 0.4 MG/ML VIAL IM PRN (19:09)
[2023-03-17] MEDS: MELATONIN 5 MG TABLETS PO SCH (23:22)
[2023-03-17] MEDS: THIAMINE HCL 100 MG TABLET (FP) PO SCH (23:46)
[2023-03-17] MEDS: METHOCARBAMOL 500 MG TABLET PO PRN (23:46)
[2023-03-18] MEDS ORDERED: chlordiazePOXIDE HCL 25 MG CAPSULE PO PRN (10:17)
[2023-03-18] MEDS ORDERED: ALBUTEROL SO4 HFA INHALER IH PRN (10:59)
[2023-03-18] MEDS: PRENATAL VITAMINS W/ FOLIC ACID TABLET (FP) PO SCH (11:04)
[2023-03-18] MEDS: NICOTINE 14 MG/24 HOURS TOPICAL PATCH TD SCH (11:04)
[2023-03-18] MEDS: chlordiazePOXIDE HCL 25 MG CAPSULE PO SCH ×3 (11:04→22:32)
[2023-03-18] MEDS: METHOCARBAMOL 500 MG TABLET PO PRN (11:14)
[2023-03-18 14:36] LABS: HEMATOCRIT 40.3 % (35.4-49); HEMOGLOBIN 13.3 GM/dL (11.7-16.9); MCH 29.5 pg (25.7-33.7); MEAN CELL VOLUME 89.3 fl (80-96); MEAN PLT VOLUME 6.9 fl (7.5-11.1); PLATELET COUNT 472 10^3/uL (134-434); RBC 4.52 M/mm3 (4.00-5.60); RDW 16.6 % (11.9-15.9)
[2023-03-18 14:42] LABS: CHLORIDE 108 mmol/L (98-107); POTASSIUM 4.2 mmol/L (3.5-5.1); SODIUM 141 mmol/L (136-145)
[2023-03-18 15:19] LABS: ALBUMIN 3.1 g/dl (3.4-5.0); ANION GAP 10 mmol/L (4-13); CALCIUM 9.4 mg/dL (8.5-10.1); CO2 24 mmol/L (21-32); GLUCOSE,RANDOM 116 mg/dL (74-106)
[2023-03-18 15:23] LABS: BILIRUBIN,TOTAL 0.4 mg/dL (0.2-1); SGOT/AST 15 U/L (15-37); TOT PROT 6.8 g/dl (6.4-8.2)
[2023-03-18 15:24] LABS: ALK PHOS 68 U/L (45-117)
[2023-03-18 15:33] LABS: BLOOD UREA NITROGEN 6.5 mg/dL (7-18)
[2023-03-18 15:35] LABS: SGPT/ALT 18 U/L (13-61)
[2023-03-18] MEDS: THIAMINE HCL 100 MG TABLET (FP) PO SCH (22:31)
[2023-03-18] MEDS: MELATONIN 5 MG TABLETS PO SCH (22:32)
[2023-03-19] MEDS: chlordiazePOXIDE HCL 25 MG CAPSULE PO SCH ×2 (05:53→10:42)
[2023-03-19 09:50] VITALS: BP 116/86; PULSE 88; RESP 16; TEMP 98.2
[2023-03-19] MEDS: PRENATAL VITAMINS W/ FOLIC ACID TABLET (FP) PO SCH (10:42)
[2023-03-19] MEDS: NICOTINE 14 MG/24 HOURS TOPICAL PATCH TD SCH (10:42)
[2023-03-20] MEDS ORDERED: chlordiazePOXIDE HCL 10 MG CAPSULE PO PRN
[2023-03-20] MEDS ORDERED: chlordiazePOXIDE HCL 10 MG CAPSULE PO SCH (05:00)
[2023-03-21] MEDS ORDERED: chlordiazePOXIDE HCL 10 MG CAPSULE PO SCH (05:00)
[2023-03-22] MEDS ORDERED: chlordiazePOXIDE HCL 10 MG CAPSULE PO ONE (05:00)
== END 2023-03-19 13:22 | disposition left against medical advice (07) | DRG 770 ==
LOC: YASAS 16:15 → Y6N 22:30 → UNDOADMIN 22:30 → UNDODISIN 03-19 13:22
PROVIDERS: ADMIT Allergy & Immunology; ATTEND Allergy & Immunology
PROC: HZ2ZZZZ Detoxification Services for Substance Abuse Treatment (ICD-10-PCS; principal; 2023-03-17)
DX: F10.230 Alcohol dependence with withdrawal, uncomplicated (principal); F14.20 Cocaine dependence, uncomplicated; F17.210 Nicotine dependence, cigarettes, uncomplicated; J45.20 Mild intermittent asthma, uncomplicated; Z87.828 Personal history of other (healed) physical injury and trauma
CPT/HCPCS: 36415; 80053; 80307; 85027; 86780; 87635

== ENCOUNTER 2023-11-03 11:03 | Inpatient (IN) | payer OTHER ==
[2023-11-03 11:44] VITALS: BMI 25.0
[2023-11-03] MEDS ORDERED: ALBUTEROL SO4 HFA INHALER IH PRN (12:05)
[2023-11-03] MEDS ORDERED: MAG HYDROX/AL HYDROX/SIMETH 30 ML UNIT-DOSE CUP PO PRN (12:19)
[2023-11-03] MEDS ORDERED: P-EPHED 60MG/TRIPROLIDI 2.5MG TABLET PO PRN (12:19)
[2023-11-03] MEDS ORDERED: ACETAMINOPHEN 325 MG TABLET (FP) PO PRN (12:19)
[2023-11-03] MEDS ORDERED: NICOTINE POLACRILEX 2 MG GUM BUC PRN (12:19)
[2023-11-03] MEDS ORDERED: guaiFENesin 600 MG TABLET.ER (FP) PO PRN (12:19)
[2023-11-03] MEDS ORDERED: BENZONATATE 200 MG CAPSULE PO PRN (12:19)
[2023-11-03] MEDS ORDERED: NICOTINE POLACRILEX 2 MG LOZENGE BC PRN (12:19)
[2023-11-03] MEDS ORDERED: BENZOCAINE/MENTHOL (CHLORASEPTIC ) LOZENGE MM PRN (12:19)
[2023-11-03] MEDS ORDERED: MAGNESIUM HYDROX 2400MG/30ML ORAL SUSPENSION 30 ML CUP PO PRN (12:19)
[2023-11-03] MEDS ORDERED: POLYETHYLENE GLYCOL (HEALTHYLAX) 3350 17 GM PACKET PO PRN (12:19)
[2023-11-03] MEDS ORDERED: LOPERAMIDE HCL 2 MG CAPSULE PO PRN (12:19)
[2023-11-03] MEDS: MELATONIN 5 MG TABLETS PO SCH (21:58)
[2023-11-03] MEDS: THIAMINE 100 MG TABLET PO SCH (21:58)
[2023-11-03] MEDS: hydrOXYzine PAMOATE 25 MG CAPSULE (FP) PO PRN (21:58)
[2023-11-04 10:21] LABS: HEMATOCRIT 39.2 % (35.4-49); HEMOGLOBIN 12.9 GM/dL (11.7-16.9); MCHC 32.8 g/dl (32.0-35.9); MEAN CELL VOLUME 88.5 fl (80-96); MEAN PLT VOLUME 8.1 fl (7.5-11.1); PLATELET COUNT 363 10^3/uL (134-434); RBC 4.43 M/mm3 (4.00-5.60); WHITE BLOOD COUNT 5.6 K/mm3 (4.0-10.0)
[2023-11-04 10:25] LABS: CHLORIDE 106 mmol/L (98-107); POTASSIUM 3.7 mmol/L (3.5-5.1); SODIUM 140 mmol/L (136-145)
[2023-11-04] MEDS: PRENATAL VITAMINS W/ FOLIC ACID TABLET (FP) PO SCH (10:36)
[2023-11-04 10:39] LABS: ALBUMIN 3.3 g/dl (3.4-5.0); ANION GAP 7 mmol/L (4-13); CALCIUM 9.1 mg/dL (8.5-10.1); CO2 26 mmol/L (21-32)
[2023-11-04 10:40] LABS: GLUCOSE,RANDOM 91 mg/dL (74-106); SGOT/AST 18 U/L (15-37); SGPT/ALT 23 U/L (13-61)
[2023-11-04 10:41] LABS: BILIRUBIN,TOTAL 0.4 mg/dL (0.2-1); TOT PROT 6.4 g/dl (6.4-8.2)
[2023-11-04 10:43] LABS: ALK PHOS 52 U/L (45-117); CREATININE 0.9 mg/dL (0.55-1.3)
[2023-11-04 13:17] LABS: HIV INTERPRETATION NEGATIVE (NEGATIVE)
[2023-11-04 21:46] LABS: EPI CELLS >36 /uL (0-25.1); HYALINE CASTS 22 /uL (0-3.1); URINE APPEARANCE CLOUDY; URINE BACTERIA 586 /uL (0-1359); URINE BILIRUBIN 1+ (NEGATIVE); URINE COLOR DK YELLOW; URINE GLUCOSE (UA) NEGATIVE (NEGATIVE); URINE KETONE TRACE (NEGATIVE); URINE LEUK ESTERASE 1+ (NEGATIVE); URINE NITRITE NEGATIVE (NEGATIVE); URINE PROTEIN 1+ (NEGATIVE); URINE RBC 7 /uL (0-23.9); URINE WBC 292 /uL (0-25.8)
[2023-11-06] MEDS ORDERED: TUBERCULIN PPD 5 TU/0.1ML VIAL ID ONE ×2 (14:49→15:03)
[2023-11-07] MEDS: IBUPROFEN 600 MG TABLET (FP) PO PRN (10:20)
[2023-11-07 17:57] LABS: URINE APPEARANCE CLEAR; URINE BILIRUBIN NEGATIVE (NEGATIVE); URINE COLOR YELLOW; URINE GLUCOSE (UA) NEGATIVE (NEGATIVE); URINE KETONE NEGATIVE (NEGATIVE); URINE LEUK ESTERASE NEGATIVE (NEGATIVE); URINE NITRITE NEGATIVE (NEGATIVE); URINE PROTEIN NEGATIVE (NEGATIVE); URINE UROBILINOGEN 0.2 mg/dL (0.2-1.0)
[2023-11-10] MEDS: SUVOREXANT 10 MG TABLET PO PRN (21:17)
[2023-11-11] MEDS: IBUPROFEN 400 MG TABLET (FP) PO PRN (10:08)
[2023-11-14] MEDS: MELATONIN 5 MG TABLETS PO SCH (21:16)
[2023-11-25 07:17] VITALS: RESP 18
[2023-11-28 06:41] VITALS: BP 121/86; PULSE 75; TEMP 97.2
[2023-11-28] MEDS: NALOXONE (NYS OPIOID OVERDOSE PROGRAM) 4 MG/0.1 ML SPRAY NS PRN (07:25)
== END 2023-11-28 07:29 | disposition home or self-care (01) | DRG 772 ==
LOC: YASAS 11:03 → Y3NR 15:01 → Y3E 11-06 12:12
PROVIDERS: ADMIT Psychiatry & Neurology Pain Medicine; ATTEND Psychiatry & Neurology Pain Medicine
PROC: HZ42ZZZ Group Counseling for Substance Abuse Treatment, Cognitive-Behavioral (ICD-10-PCS; principal; 2023-11-03)
DX: F10.20 Alcohol dependence, uncomplicated (principal); F14.20 Cocaine dependence, uncomplicated; F17.210 Nicotine dependence, cigarettes, uncomplicated; F19.24 Other psychoactive substance dependence with psychoactive substance-induced mood disorder; G47.00 Insomnia, unspecified; Z59.00 Homelessness unspecified; Z56.0 Unemployment, unspecified
CPT/HCPCS: 36415; 80053; 80305; 80307; 81003; 85027; 86780; 87086; 87389; 87811; 93005; 93010